=== PATIENT | female | born 1995 | race Caucasian/White ===

== ENCOUNTER 2019-09-25 17:52 | Emergency (ER) | payer MEDICAID ==
[~2019-09-25] VITALS: Ht 162.6 cm; Wt 52.0 kg
[~2019-09-25 17:52] MED LIST: HYDR-4383 PO; LIDOcaine 1% W/epiNEPHrine 1:200,000 10ml vial ONE
[2019-09-25 18:03] VITALS: BP 129/81
[2019-09-25] MEDS ORDERED: HYDROcodone/acetaminophen 10/325mg tab PO ONE (19:30)
[2019-09-25] MEDS ORDERED: penicillin V potassium 500mg tablet PO ONE ×2 (19:30→19:40)
[2019-09-25] MEDS ORDERED: HYDR-4353 PO (19:39)
[2019-09-25] MEDS ORDERED: PENI500T2 PO (19:39)
== END 2019-09-25 19:48 | disposition home or self-care (01) ==
LOC: ER 17:52
DX: K04.7 Periapical abscess without sinus (principal); F17.200 Nicotine dependence, unspecified, uncomplicated
CPT/HCPCS: 64400; 99284

== ENCOUNTER 2022-05-11 17:59 | Emergency (ER) | payer MEDICAID ==
[~2022-05-11] VITALS: Ht 154.9 cm; Wt 79.5 kg
[~2022-05-11 17:59] MED LIST changes: -LIDOcaine 1% W/epiNEPHrine 1:200,000 10ml vial ONE
[2022-05-11 18:23] VITALS: BP 117/84
== END 2022-05-11 21:11 | disposition left against medical advice (07) ==
LOC: ER 18:00
DX: K08.89 Other specified disorders of teeth and supporting structures (principal); Z53.21 Procedure and treatment not carried out due to patient leaving prior to being seen by health care provider

== ENCOUNTER 2022-06-22 14:57 | Emergency (ER) | payer MEDICAID ==
[~2022-06-22] VITALS: Ht 154.9 cm; Wt 79.5 kg
[2022-06-22 15:35] VITALS: BP 111/68
[2022-06-22] MEDS ORDERED: IBUP-1986 PO (17:38)
[2022-06-22] MEDS ORDERED: GABA-530 PO (17:38)
== END 2022-06-22 18:01 | disposition home or self-care (01) ==
LOC: ER 14:57
DX: K08.89 Other specified disorders of teeth and supporting structures (principal)
CPT/HCPCS: 99283